=== PATIENT | male | born 1950 | race Caucasian/White ===

== ENCOUNTER → 2018-01-02 | Outpatient (CLI) | payer OTHER, MEDICARE ==
[~2018-01-02] VITALS: Ht 172.7 cm; Wt 74.8 kg
[~2018-01-02] MED LIST: ADVAIR 100-501 EACH INH; ASPIR 8181 MG PO; BENICAR20 MG PO; HYDROCHLOROTH12.5 M1 PO; LIPITOR10 MG PO; NORVASC5 MG PO; PREVACID15 MG PO; TOPROL XL25 MG PO; TYLENOL EXTRA500 MG PO; VENTOLIN HFA 1818 GM INH; VITAMIN D1000 UNI1 PO
--- NOTE | ~2018-01-02 | PATH ---
[facility] [place] [address] PATHOLOGY RPT PROCEDURE Name: ROMARIO MCCARTHY Room #: REG [facility] M..#: [id number] Admission: 01/02/18 Date of : 48 Discharge: Report #: [id number] Path Case #: [id number] [facility] Accession Number: [id number] . 01 Material submitted: . POLYP AT TRANSVERSE COLON . 01 Clinical history: . Pre-Op DX: Screening Post-Op DX: Colon polyp . 02 Diagnosis: Polyp, transverse colon, endoscopic biopsy: - Hyperplastic polyp. - Negative for dysplasia. (IUV/db; 01/03/18) LBQ/01/03/2018 . 02 Electronically signed: . Rosa Farah MD, Pathologist NPI- [id number] . 01 Gross description: . Received in formalin labeled "Romario Mccarthy, polyp at transverse colon," are 2 segments of calderon soft tissue measuring 0.7 x 0.3 x 0.2 cm in aggregate dimensions and ranging from 0.3 to 0.4 cm in maximum dimension. The specimen is submitted entirely in cassette A1. (TSD; 01/02/2018) TOB/TOB . 02 Pathologist provided ICD-10: K63.5 . 02 CPT . 783002 Performed at: [address], [place] [id number] MD Elder Velazco MD Phone: [phone] Performed at: [address] [id number] MD Rosa Farah MD Phone: [phone]
--- NOTE | ~2018-01-02 | P ---
[facility] [place] [address] [place] [address] PROCEDURE REPORT Name: ROMARIO MCCARTHY Room #: REG [facility] Rose#: [id number] Admission: 01/02/18 Attend Phys: Jonny Syed Discharge: Date of : 48 Report #: [id number] THIS REPORT FOR: //name// CC: Shade Shell DATE OF SERVICE: 01/02/2018 PROCEDURE PERFORMED: Colonoscopy with biopsies. HISTORY OF PRESENT ILLNESS: The patient is a 67-year-old male who presents today for a routine screening colonoscopy. He denies any symptoms. No family history of colon cancer. He has had previous history of prostate cancer, status post radiation therapy, but he denies any blood in his stools. Plan is for colonoscopy. DESCRIPTION OF PROCEDURE: The risks and benefits of the procedure were explained to the patient; those risks including but not limited to bleeding, perforation and the risk of sedation. He understood these risks and gave informed consent. Sedation was given using propofol per anesthesia. Next, a digital rectal exam was initially performed, which was normal. Next, using a standard Olympus colonoscope, the scope was placed in the patient's anus and advanced under direct vision to the cecum. The overall prep was good. The colon was somewhat dilated in general. The cecum was normal and ileocecal valve were normal. Ascending colon was normal. In the transverse colon, a 5-mm sessile polyp was noted. This was removed with cold forceps, otherwise normal. The descending and sigmoid colon were normal. 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 There was no evidence of bleeding. No other abnormalities were noted. The scope was then withdrawn and the procedure terminated. The patient tolerated the procedure well. IMPRESSION: 1. Small colonic polyp. 2. Radiation proctitis. No evidence of bleeding. 3. Otherwise, normal colonoscopy. RECOMMENDATIONS: 1. Await biopsy results. 2. If polyp is hyperplastic, repeat in 10 years; if adenomatous polyp, repeat in [address] [address] PROCEDURE REPORT Name: ROMARIO MCCARTHY Room #: REG [facility]MA Rose#: [id number] Admission: 01/02/18 Attend Phys: Jonny Syed Discharge: Date of : 48 Report #: [id number] Thank you for allowing me to participate in his care. <ELECTRONICALLY SIGNED> By: Jonny Shell MD 01/04/18 [id number] Jonny Shell MD /nt
== END | disposition home or self-care (01) ==
LOC: GI 07:31
DX: Z12.11 Encounter for screening for malignant neoplasm of colon (principal); K63.5 Polyp of colon; K62.7 Radiation proctitis; I10 Essential (primary) hypertension; K21.9 Gastro-esophageal reflux disease without esophagitis; J43.9 Emphysema, unspecified; E78.00 Pure hypercholesterolemia, unspecified; F17.210 Nicotine dependence, cigarettes, uncomplicated; Z98.890 Other specified postprocedural states; Z85.46 Personal history of malignant neoplasm of prostate; Z85.818 Personal history of malignant neoplasm of other sites of lip, oral cavity, and pharynx; Z79.899 Other long term (current) drug therapy; Z88.2 Allergy status to sulfonamides; Z88.8 Allergy status to other drugs, medicaments and biological substances; Z79.82 Long term (current) use of aspirin
CPT/HCPCS: 62110; 62900